=== PATIENT | female | born 1980 | race Caucasian/White ===

== ENCOUNTER 2019-02-16 13:45 | Outpatient (CLI) | payer BC ==
[~2019-02-16 13:45] MED LIST: Gadobenate Dimeglumine 529 MG/1 ML (20ML VIAL) ONE
--- NOTE | 2019-02-16 15:43 | MRI ---
MRI Brain W WO Con: 02/16/2019 12:00 AM CLINICAL HISTORY: Brain tumor. COMPARISON: None. 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 Hemorrhage: None. Ventricular system: Normal in size and morphology for the patient's age. Basal cisterns: Normal. Cerebral parenchyma: Normal. Midline shift: None. Cerebellum: Normal. Brainstem: Normal. 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 Recommend 12 month follow-up exam to confirm stability.
== END 2019-02-16 13:46 | disposition home or self-care (01) ==
LOC: TBSIIMAG 13:45
PROVIDERS: ATTEND Neurological Surgery
DX: D49.6 Neoplasm of unspecified behavior of brain (principal); G93.0 Cerebral cysts
CPT/HCPCS: 70553; A9577

== ENCOUNTER 2020-08-17 07:56 | Outpatient (CLI) | payer BC ==
--- NOTE | 2020-08-17 08:41 | MRI ---
BRAIN MRI WITH AND WITHOUT CONTRAST: HISTORY: Astrocytoma. Follow-up exam. COMPARISON: 02/16/2019, 06/19/2018. FINDINGS: Gradient echo sequence: No hemorrhage. Calvarium: Appropriate T1 marrow signal intensity. Midline brain parenchyma: Unremarkable. Cerebrum:No parenchymal mass, mass effect or midline shift. Brain volume is age-appropriate. Cortical orourke-white matter differentiation is preserved. No significant T2 or FLAIR white matter hyperintensities. Centered in the pineal gland is an intrinsic T1 hypointense, T2 and FLAIR hyperintense lesion with as sociated peripheral enhancement, compatible with a known pineal cyst Pineal cyst measures 0.7 x 0.6 cm. No significant associated hydrocephalus. Ventricles: No evidence of hydrocephalus. Sinuses and mastoid air cells: Adequate aeration. Diffusion: Central arterial flow is maintained. Absent restricted diffusion. Postcontrast images: No pathologic enhancement of the brain parenchyma. IMPRESSION: 1. No pathologic enhancement of the brain parenchyma. 2. Stable pineal cyst. Transcribed Date/Time: 08/17/2020 8:49 AM
[2020-08-17] MEDS ORDERED: Magnevist 469MG/ML 20 ML VIAL ONE (14:47)
== END 2020-08-17 07:57 | disposition home or self-care (01) ==
LOC: MRI 07:56
PROVIDERS: ATTEND Neurological Surgery
DX: C71.9 Malignant neoplasm of brain, unspecified (principal); G93.0 Cerebral cysts
CPT/HCPCS: 70553; A9579